=== PATIENT | female | born 1980 ===

== ENCOUNTER 2020-08-02 16:37 | Emergency (ER) | payer BC, SELFPAY ==
[2020-08-02] VITALS (7 sets, daily range): BP systolic 137–168; BP diastolic 74–101; PULSE 73–111; RESP 16–22; TEMP 36.7–37; O2SAT 98–100
--- NOTE | 2020-08-02 18:33 | ED_ITS ---
HPI - General Adult General Chief complaint: Dizziness Stated complaint: Ear and Sinus Stuff Tired, Vertigo, Nauseous Time Seen by Provider: 08/02/20 18:00 Source: patient Mode of arrival: Ambulatory Limitations: no limitations History of Present Illness HPI narrative: Patient is a 40-year-old female here for evaluation of multiple symptoms to include dizziness, lightheadedness, vertigo, feeling tired all the time. She has had anemia in the past secondary to vaginal bleeding from menses and has had a blood transfusion. Her symptoms that she presents with today been going on for the past 6 weeks. She has seen her primary doctor. Was placed on decongestants in oral steroids symptoms were not improving. She has contacted [facility] but does not have a follow-up scheduled to this point. Came to the emergency department because her symptoms were not improving. Related Data Previous Rx's Medication Instructions Recorded meclizine 25 mg PO TID PRN #21 tab 08/02/20 Allergies Allergy/AdvReac Type Severity Reaction Status Date / Time No Known Drug Allergies Allergy Verified 08/02/20 16:47 Review of Systems Constitutional Constitutional: Reports daytime sleepiness, Reports fatigue, Denies fever(s), Reports headache(s) and Reports lethargy Eyes Eyes: Denies change in vision ENT Ears, Nose, Mouth, and Throat: Reports vertigo, Reports dizziness, Denies otalgia, Reports headache(s), Reports disequilibrium, Denies sinus pain and Denies sinus pressure Cardiovascular Cardiovascular: Denies chest pain and Denies dyspnea Respiratory Respiratory: Denies cough and Denies dyspnea Gastrointestinal Gastrointestinal: Denies abdominal pain, Denies nausea and Denies vomiting Musculoskeletal Musculoskeletal: Denies arthralgias, Denies myalgias and Denies numbness Integumentary/Breasts Skin/Breast: Denies lesions and Denies rash Neurologic Neurologic: Denies burning sensations, Denies confusion, Reports vertigo, Reports dizziness, Reports headache(s), Denies numbness and Reports disequilibrium Psychiatric Psychiatric: Denies confusion Endocrine Endocrine: Reports fatigue Hematologic/Lymphatic Hematologic/Lymphatic: Denies easy bleeding and Denies easy bruising Allergic/Immunologic Allergic/Immunologic: Denies urticaria Patient History Medical History Anemia Social History Smoking Status: Never smoker Smoking Status: Never smoker Exam Initial Vital Signs Initial Vital Signs: Vital Signs Temperature 98.6 F 08/02/20 16:45 Pulse Rate 111 H 08/02/20 16:45 Respiratory Rate 22 08/02/20 16:45 Blood Pressure 168/101 H 08/02/20 16:45 Pulse Oximetry 100 08/02/20 16:45 Const General: cooperative and comfortable Limitations: mental status not altered HENMT Head: normal to inspection and normocephalic Ears: TM's normal bilaterally Eyes Pupils: PERRL Resp Effort & Inspection: normal respiratory effort Auscultation: clear to auscultation bilaterally Cardio Rate: regular rate Rhythm: regular rhythm GI Inspection: non-distended Palpation: soft Skin Lesions: no lesions Rashes: no rashes Neuro General: patient alert, patient awake and patient oriented x3 Cranial Nerves: CN's II-XI intact bilaterally Cognition: normal cognition Speech: speech normal Gait: normal gait Motor: muscle tone normal throughout Sensory Exam: no sensory deficits noted Extrem General: capillary refill normal Psych Appearance: grossly normal and well kempt Scores GCS [place] coma scale eye opening: Spontaneous Santi coma scale verbal response: Orientated Santi coma scale motor response: Obey commands Santi coma scale total score: 15 Course Orders Ordered: ED Orders 08/02/20 18:40 EKG-12 Lead Stat 08/02/20 18:52 Basic Metabolic Panel Stat Complete Blood Count AUTO DIFF Stat Test Serum,Qual Stat Thyroid Stimulating Hormone Stat Discontinued Medications Sodium Chloride (Normal Saline 0.9%) 1,000 mls @ 1,000 mls/hr IV BOLUS ONE Stop: 08/02/20 19:32 Last Infusion: 08/02/20 20:07 Dose: 0 mls/hr Documented by: Admin: 08/02/20 18:53 Dose: 1,000 mls/hr Documented by: PREETHI Vital Signs Vital signs: Vital Signs - 8 hr 08/02/20 18:01 08/02/20 18:02 08/02/20 18:30 Temperature Pulse Rate 88 95 H Respiratory Rate Blood Pressure 156/87 H 153/80 H Pulse Oximetry 100 100 08/02/20 19:00 08/02/20 19:17 08/02/20 20:11 Temperature 98.1 F Pulse Rate 73 88 82 Respiratory Rate 16 Blood Pressure 148/74 H 137/76 140/74 Pulse Oximetry 98 100 100 Medical Decision Making Lab Data Lab results reviewed: Yes I reviewed the patient's lab results. Result diagrams: 08/02/20 18:52 08/02/20 18:52 Labs: Lab Results 08/02/20 08/02/20 08/02/20 Range/Units 18:52 18:52 18:52 WBC 8.9 (4.5-11.0) X10^3/uL RBC 4.75 (4.0-5.2) X10^6/uL Hgb 11.9 L (12.0-16.0) g/dL Hct 35.6 L (36-46) % MCV 75.1 L (80-100) fL MCH 25.2 L (26-34) PG MCHC 33.5 (30-36) % RDW 16.2 H (11.6-14.8) % Plt Count 308 (150-400) X10^3/uL Neut % (Auto) 76.3 H (50-75) % Lymph % (Auto) 18.6 L (25-40) % [place] % (Auto) 4.3 (3-14) % Eos % (Auto) 0.4 L (2-4) % Baso % (Auto) 0.4 (0-2) % Neut # (Auto) 6800 (0337-0679) /uL Lymph # (Auto) 1700 (3952-1593) /uL [place] # (Auto) 400 (0-900) /uL Eos # (Auto) 0 (0-450) /uL Baso # (Auto) 0 (0-100) /uL Sodium 136 L (137-145) mmol/L Potassium 3.8 (3.4-5.1) mmol/L Chloride 106 (98-107) mmol/L Carbon Dioxide 26 (22-32) mmol/L BUN 9 (7-17) mg/dL Creatinine 0.43 L (0.52-1.04) mg/dL Estimated GFR > 60.0 (>60) mL/min BUN/Creatinine Ratio 20.9 (6-22) Glucose 100 (70-100) mg/dL Calcium 9.0 (8.4-10.2) mg/dL TSH 1.77 (0.47-4.68) uIU/mL Serum , Qual (Negative) 08/02/20 Range/Units 18:52 WBC (4.5-11.0) X10^3/uL RBC (4.0-5.2) X10^6/uL Hgb (12.0-16.0) g/dL Hct (36-46) % MCV (80-100) fL MCH (26-34) PG MCHC (30-36) % RDW (11.6-14.8) % Plt Count (150-400) X10^3/uL Neut % (Auto) (50-75) % Lymph % (Auto) (25-40) % [place] % (Auto) (3-14) % Eos % (Auto) (2-4) % Baso % (Auto) (0-2) % Neut # (Auto) (9834-2351) /uL Lymph # (Auto) (4839-0885) /uL [place] # (Auto) (0-900) /uL Eos # (Auto) (0-450) /uL Baso # (Auto) (0-100) /uL Sodium (137-145) mmol/L Potassium (3.4-5.1) mmol/L Chloride (98-107) mmol/L Carbon Dioxide (22-32) mmol/L BUN (7-17) mg/dL Creatinine (0.52-1.04) mg/dL Estimated GFR (>60) mL/min BUN/Creatinine Ratio (6-22) Glucose (70-100) mg/dL Calcium (8.4-10.2) mg/dL TSH (0.47-4.68) uIU/mL Serum , Qual Negative (Negative) ECG Data Attestation: I personally reviewed and interpreted this ECG as follows: Prior ECG tracings: not available for review Interpretation: Sinus rhythm Ventricular rate is 73 Normal axis Normal QRS Normal QTC No ST T wave changes MDM Narrative Medical decision making narrative: Patient has a relatively benign exam here in the emergency department. She is on decongestants and nasal steroids for what they initially thought was a sinus issue. Her symptoms been going on for the past 6 weeks. She is not anemic. EKG is unremarkable. Rest of her labs unremarkable. Patient does have some symptoms that are consistent with vertigo another symptoms that are not. She is not on any anti vertigo medication. Plan will be is to prescribe her meclizine and have her follow-up with ear nose and throat for which she has already contacted. Low suspicion for CVA. Patient was given return precautions and follow-up instructions. She expressed understanding and agreement. Discharge Plan Departure Patient Disposition: Home Clinical Impression: Dizzinesses Instructions: DI for Dizziness-Nonvertigo Activity Restrictions/Additional Instructions: A prescription was transmitted to [facility] in [place]. Start taking it as directed. Recommend that you keep all of your scheduled medical appointments. I would continue to work on trying to get a follow-up with the Ear nose and throat providers. Return to the emergency department for any new symptoms. Prescriptions: New meclizine 25 mg tablet 25 mg PO TID PRN (Reason: dizziness) Qty: 21 RF: 0 Referrals: Rosibel De Santiago ARNP [Primary Care Provider] -
--- NOTE | 2020-08-02 18:33 | ED.GENADULT ---
HPI - General Adult General Chief complaint: Dizziness Stated complaint: Ear and Sinus Stuff Tired, Vertigo, Nauseous Time Seen by Provider: 08/02/20 18:00 Source: patient Mode of arrival: Ambulatory Related Data Allergies Allergy/AdvReac Type Severity Reaction Status Date / Time No Known Drug Allergies Allergy Verified 08/02/20 16:47 Patient History Social History Smoking Status: Never smoker Smoking Status: Never smoker Exam Initial Vital Signs Initial Vital Signs: Vital Signs Temperature 98.6 F 08/02/20 16:45 Pulse Rate 111 H 08/02/20 16:45 Respiratory Rate 22 08/02/20 16:45 Blood Pressure 168/101 H 08/02/20 16:45 Pulse Oximetry 100 08/02/20 16:45 Course Vital Signs Vital signs: Vital Signs - 8 hr 08/02/20 16:45 08/02/20 18:01 08/02/20 18:02 Temperature 98.6 F Pulse Rate 111 H 88 Respiratory Rate 22 Blood Pressure 168/101 H 156/87 H Pulse Oximetry 100 100
[2020-08-02] MEDS: SODIUM CHLORIDE 0.9% 1,000 ML 1000 ML IV (18:53)
[2020-08-02 19:05] LABS: Add Manual Diff / Slide Review NO; Basophils Absolute Auto 0 /uL (0-100); Basophils Percent Auto 0.4 % (0-2); Eosinophils Absolute Auto 0 /uL (0-450); Eosinophils Percent Auto 0.4 % (2-4); Hematocrit 35.6 % (36-46); Hemoglobin 11.9 g/dL (12.0-16.0); Lymphocytes Absolute Auto 1700 /uL (1100-4500); Lymphocytes Percent Auto 18.6 % (25-40); Mean Corpuscular HGB Conc 33.5 % (30-36); Mean Corpuscular Hemoglobin 25.2 PG (26-34); Mean Corpuscular Volume 75.1 fL (80-100); Monocytes Absolute Auto 400 /uL (0-900); Monocytes Percent Auto 4.3 % (3-14); Neutrophils Absolute Auto 6800 /uL (1500-7000); Neutrophils Percent Auto 76.3 % (50-75); Platelet Count 308 X10^3/uL (150-400); Red Blood Cell Count 4.75 X10^6/uL (4.0-5.2); Red Cell Distribution Width 16.2 % (11.6-14.8); White Blood Cell Count 8.9 X10^3/uL (4.5-11.0)
[2020-08-02 19:18] LABS: Pregnancy Test Serum,Qual Negative (Negative)
[2020-08-02 19:19] LABS: BUN Creatinine Ratio 20.9 (6-22); Blood Urea Nitrogen 9 mg/dL (7-17); Carbon Dioxide 26 mmol/L (22-32); Chloride 106 mmol/L (98-107); Estimated Glomerular Filt Rate > 60.0 mL/min (>60); Glucose 100 mg/dL (70-100); HEMOLYSIS < 15 (0-50); Potassium 3.8 mmol/L (3.4-5.1); Sodium 136 mmol/L (137-145)
[2020-08-02 19:49] LABS: Thyroid Stimulating Hormone 1.77 uIU/mL (0.47-4.68)
== END 2020-08-02 20:11 | disposition home or self-care (01) ==
PROVIDERS: Emergency Provider Emergency Medicine; PCP Nurse Practitioner
DX: R42 Dizziness and giddiness (principal); D64.9 Anemia, unspecified; R53.83 Other fatigue; R51.9 Headache, unspecified
CPT/HCPCS: 36415; 80048; 84443; 84703; 85025; 93005; 93010; 96360; 99283; 99284

== ENCOUNTER 2020-09-10 15:21 | Emergency (ER) | payer BC, SELFPAY ==
[2020-09-10 15:28] VITALS: BP 181/91; PULSE 97; RESP 16; TEMP 36.8; O2SAT 97; BMI 32.2
--- NOTE | 2020-09-10 15:32 | DI.RAD.S_ITS ---
PROCEDURE: XR HIP W PEL IF DONE RT 2V INDICATIONS: fall TECHNIQUE: AP pelvis with frogleg lateral view of the right hip. COMPARISON: None. FINDINGS: Bones: No acute fractures or dislocations. Pelvic ring appears intact. No suspicious bony lesions. There is possible ankylosis of the left sacroiliac joint that may be related to prior sacroiliitis. Minimal spurring is seen at the lateral margins of the acetabula. Soft tissues: The visualized bowel gas pattern is normal. No suspicious soft tissue calcifications. IMPRESSION: No acute osseous abnormality. 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 If there is continued pain, further evaluation with CT or MRI may be obtained. Dictated by: Jason Rgean M.D. on 09/10/2020 at 16:07 Approved by: Jason Regan M.D. on 09/10/2020 at 16:11
--- NOTE | 2020-09-10 16:48 | ED_ITS ---
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 She has had steroid injections in the past. Does not have a orthopedic provider here in the area. She states that earlier this week she was hiking with her and afterwards started having pain in her right hip. The next day she went on a again in the pain got worse. She states that since that time she has had difficulty especially with movement of her hip. She states she can stand on her hip without much discomfort. Has been taking Tylenol and ibuprofen for her symptoms. Related Data Previous Rx's Medication Instructions Recorded meclizine 25 mg PO TID PRN #21 tab 08/02/20 hydrocodone-acetaminophen [[place]] 1 tab PO Q4-6H PRN #10 tab 09/10/20 Allergies Allergy/AdvReac Type Severity Reaction Status Date / Time No Known Drug Allergies Allergy Verified 08/02/20 16:47 Review of Systems Constitutional Constitutional: Denies fever(s) and Denies headache(s) ENT Ears, Nose, Mouth, and Throat: Denies vertigo, Denies dizziness and Denies headache(s) Cardiovascular Cardiovascular: Denies chest pain and Denies dyspnea Respiratory Respiratory: Denies dyspnea Gastrointestinal Gastrointestinal: Denies nausea Musculoskeletal Musculoskeletal: Denies myalgias Comments: Right hip pain Integumentary/Breasts Skin/Breast: Denies rash Neurologic Neurologic: Denies vertigo, Denies dizziness and Denies headache(s) Patient History Medical History Anemia Social History Smoking Status: Never smoker Smoking Status: Never smoker Substance Use Type: does not use Exam Initial Vital Signs Initial Vital Signs: Vital Signs Temperature 98.3 F 09/10/20 15:28 Pulse Rate 97 H 09/10/20 15:28 Respiratory Rate 16 09/10/20 15:28 Blood Pressure 181/91 H 09/10/20 15:28 Pulse Oximetry 97 09/10/20 15:28 Const General: cooperative, healthy appearing and comfortable Resp Effort & Inspection: normal respiratory effort Cardio Rate: regular rate Skin Lesions: no lesions Rashes: no rashes Extrem Other: Right knee and right ankle unremarkable. Patient does have right hip tenderness both laterally and anteriorly. She has tenderness with external rotation but not with internal rotation. She can somewhat flex and extend with minimal tenderness. Psych Appearance: grossly normal and well kempt Course Orders Ordered: ED Orders 09/10/20 15:32 XR hip w pel if done RT 2V Stat Vital Signs Vital signs: Vital Signs - 8 hr 09/10/20 15:28 09/10/20 17:05 Temperature 98.3 F Pulse Rate 97 H 89 Respiratory Rate 16 16 Blood Pressure 181/91 H 188/96 H Pulse Oximetry 97 98 MDM - Fall Imaging Data Extremity x-ray #1: Radiologist's Impression: [address] [id number] ReportSigned Patient: Malena Bill AMR#: [id number]: 1980Acct:[id number]/Sex: 40 / FDate of Service: 09/10/20Loc: EDAccession Number: [id number] Procedure: XR hip w pel if done RT 2V Ordering Provider: Nik Nye D.O. PROCEDURE: XR HIP W PEL IF DONE RT 2V INDICATIONS: fall TECHNIQUE: AP pelvis with frogleg lateral view of the right hip. COMPARISON: None. FINDINGS: Bones: No acute fractures or dislocations. Pelvic ring appears intact. No suspicious bony lesions. There is possible ankylosis of the left sacroiliac joint that may be related to prior sacroiliitis. Minimal spurring is seen at the lateral margins of the acetabula. Soft tissues: The visualized bowel gas pattern is normal. No suspicious soft tissue calcifications. IMPRESSION: No acute osseous abnormality. 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 If there is continued pain, further evaluation with CT or MRI may be obtained. Dictated by: Jason Regan M.D. on 09/10/2020 at 16:07 Approved by: Jason Regan M.D. on 09/10/2020 at 16:11 [facility] Narrative Medical decision making narrative: Patient is neurovascularly intact. No f ractures noted on the x-rays. Unfortunately patient wanted a steroid injection in her hip but I told her that we were unable to do that here in the ER. We did discuss the use of Tylenol and ibuprofen. She does have crutches at home crew will send home with a short course of pain medication. She was given referral to contact the health resources coordinator to help her status or primary doctor in the area. She expressed understanding and agreement Discharge Plan Departure Patient Disposition: Home Clinical Impression: Acute pain of right hip Instructions: DI for Hip Pain Activity Restrictions/Additional Instructions: There were no fractures on the x-ray so you can walk on your right leg as tolerated. Recommend that you contact [phone]. This is a health senior water resources engineer who can help establish a primary provider. Recommend that you take the Tylenol and ibuprofen like we discussed for discomfort. Return to the emergency department for any new symptoms Prescriptions: New hydrocodone-acetaminophen [[place]] 5-325 mg tablet 1 tab PO Q4-6H PRN (Reason: pain) Qty: 10 RF: 0 No Action meclizine 25 mg tablet 25 mg PO TID PRN (Reason: dizziness) Qty: 21 RF: 0 Referrals: Rosibel De Santiago ARNP [Primary Care Provider] -
[2020-09-10 17:05] VITALS: BP 188/96; PULSE 89; RESP 16; O2SAT 98
== END 2020-09-10 17:07 | disposition home or self-care (01) ==
PROVIDERS: Emergency Provider Emergency Medicine; PCP Nurse Practitioner
DX: M25.551 Pain in right hip (principal); D64.9 Anemia, unspecified; W19.XXXA Unspecified fall, initial encounter
CPT/HCPCS: 73502; 99283

== ENCOUNTER → 2020-09-17 16:38 | Outpatient (CLI) | payer BC, SELFPAY ==
--- NOTE | 2020-09-17 16:40 | DI.MRI.S_ITS ---
PROCEDURE: MR HIP RT WO CON INDICATIONS: PAIN IN RIGHT HIP TECHNIQUE: Noncontrast coronal T1 spin echo and STIR through the bony pelvis. Coronal and axial T2 fast spin echo with fat saturation, sagittal T1 spin echo, and oblique axial T2 fast spin echo with fat saturation through the hip. COMPARISON: [facility] Outside Film, MR, MR HIP RIGHT WITHOUT CONTRAST, 05/27/2019, 18:39. [facility], CR, XR HIP W PEL IF DONE RT 2V, 09/10/2020, 15:38. FINDINGS: Image quality: Excellent. Bones and joints: Bone marrow of the pelvic ring and proximal femurs demonstrates normal overall signal. No bone contusions or fractures. There is mild collar osteophytosis in the hips. No avascular necrosis of the femoral heads. The visualized lower lumbar spine appears normally aligned. Tendons and ligaments: The gluteus medius and minimus tendons appear intact, with mild peritendinous edema consistent with nonspecific peritendinitis. No discrete bursal fluid collections. The nearby proximal iliotibial band also appears intact. The iliopsoas tendon appears intact, without adjacent bursal fluid collections or evidence for impingement syndrome. The origin of the hamstring tendon is intact at the ischial tuberosity, as well as the associated sacrotuberous ligament. The straight and reflected heads of the rectus femoris muscle origin appear intact, as well as the conjoint tendon. The ligamentum teres appears intact where visualized. Labrum and cartilage: There is mild partial tearing in the anterosuperior labrum. Cartilage surface of the femoral head demonstrates mild thinning superiorly. The alpha angle of the femur is within normal limits at less than 55 degrees. Soft tissues: Visualized muscles demonstrate normal bulk and internal signal. Quadratus femoris muscle demonstrates no internal edema to suggest ischiofemoral impingement. The proximal sciatic neurovascular bundle appears normal adjacent to the hamstring tendons. No free pelvic fluid. Bladder wall thickness is normal. Multiple uterine fibroids redemonstrated including a left paracentral the exophytic fibroid measuring up to 4.0 x 4.0 cm in coronal dimension. Visualized bowel loops appear normal in caliber. IMPRESSION: 1. Mild partial tearing of the anterosuperior labrum. 2. Mild degenerative changes of the right hip with mild superior cartilage thinning and mild collar osteophytosis. 3. Mild peritendinitis along the gluteal tendons at the right greater trochanter without a discrete bursal fluid collection. 4. Enlarged fibroid uterus demonstrated. Dictated by: Young Cross M.D. on 09/20/2020 at 16:44 Approved by: Young Cross M.D. on 09/20/2020 at 16:58
== END ==
PROVIDERS: PCP Nurse Practitioner; Referring Provider Physical Medicine & Rehabilitation Pain Medicine; Visit Provider Physical Medicine & Rehabilitation Pain Medicine
DX: M25.551 Pain in right hip (principal); S73.191A Other sprain of right hip, initial encounter; M76.01 Gluteal tendinitis, right hip; D25.9 Leiomyoma of uterus, unspecified
CPT/HCPCS: 73721

== ENCOUNTER 2021-04-06 06:22 | Emergency (ER) | payer BC, SELFPAY ==
--- NOTE | 2021-04-06 06:36 | ED_ITS ---
HPI - General Adult <Becca Jacinto MD - Last Filed: 04/06/21 22:18> General Chief complaint: Urogenital-Female Stated complaint: uterine fibroids impacting bladder Time Seen by Provider: 04/06/21 06:36 Related Data Previous Rx's Medication Instructions Recorded meclizine 25 mg tablet 25 mg PO TID PRN #21 tab 08/02/20 hydrocodone 5 mg-acetaminophen 325 1 tab PO Q4-6H PRN #10 tab 09/10/20 mg tablet ([place]) hydrocodone 5 mg-acetaminophen 325 1 tab PO Q8H PRN #6 tab 04/06/21 mg tablet Allergies Allergy/AdvReac Type Severity Reaction Status Date / Time No Known Drug Allergies Allergy Verified 08/02/20 16:47 <Nik Nye DO - Last Filed: 04/06/21 07:35> History of Present Illness HPI narrative: Patient is a 41-year-old female. She states she has known uterine fibroids that were diagnosed at outside facility by an ultrasound. She states that whenever she gets her menstrual cycle she has very intense pain and then has problems with urinating. She is 2 days into her menstrual cycle and is again having discomfort. 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 She is not on control. She states she has tried multiple forms of control in the past and just seems to make things worse. <Nik Nye DO - Last Filed: 04/06/21 07:35> Constitutional Constitutional: Reports system reviewed and no additional complaints, except as documented Gastrointestinal Gastrointestinal: Reports as per HPI Genitourinary Genitourinary: Reports system reviewed and no additional complaints, except as documented Musculoskeletal Musculoskeletal: Reports system reviewed and no additional complaints, except as documented Hematologic/Lymphatic On Anticoagulants: No Patient History <Becca Jacinto MD - Last Filed: 04/06/21 22:18> Medical History Anemia Social History Smoking Status: Never smoker Smoking Status: Never smoker Substance Use Type: does not use Exam <Becca Jacinto MD - Last Filed: 04/06/21 22:18> Initial Vital Signs Initial Vital Signs: Vital Signs Temperature 98.1 F 04/06/21 06:41 Pulse Rate 85 04/06/21 06:41 Respiratory Rate 18 04/06/21 06:41 Blood Pressure 162/94 H 04/06/21 06:41 Pulse Oximetry 100 04/06/21 06:41 <Nik Nye DO - Last Filed: 04/06/21 07:35> Initial Vital Signs Initial Vital Signs: Vital Signs Temperature 98.1 F 04/06/21 06:41 Pulse Rate 85 04/06/21 06:41 Respiratory Rate 18 04/06/21 06:41 Blood Pressure 162/94 H 04/06/21 06:41 Pulse Oximetry 100 04/06/21 06:41 Const General: cooperative and healthy appearing HENMT Head: normal to inspection Resp Effort & Inspection: normal respiratory effort Auscultation: clear to auscultation bilaterally Cardio Rate: regular rate Rhythm: regular rhythm GI Inspection: normal to inspection and non-distended Skin General: no rashes or lesions noted Neuro General: patient alert, patient awake and moves all extremities Extrem General: normal to inspection Course <Becca Jacinto MD - Last Filed: 04/06/21 22:18> Orders Ordered: ED Orders 04/06/21 06:55 Ictotest Urine Stat Test Urine Stat Urine Culture Stat Urine Microscopic Stat Vital Signs Vital signs: Vital Signs - 8 hr 04/06/21 06:41 Temperature 98.1 F Pulse Rate 85 Respiratory Rate 18 Blood Pressure 162/94 H Pulse Oximetry 100 <Nik Nye DO - Last Filed: 04/06/21 07:35> Orders Ordered: ED Orders 04/06/21 06:55 Ictotest Urine Stat Test Urine Stat Urine Culture Stat Urine Microscopic Stat Vital Signs Vital signs: Vital Signs - 8 hr 04/06/21 06:41 Temperature 98.1 F Pulse Rate 85 Respiratory Rate 18 Blood Pressure 162/94 H Pulse Oximetry 100 Medical Decision Making <Becca Jacinto MD - Last Filed: 04/06/21 22:18> Lab Data Labs: Lab Results 04/06/21 04/06/21 04/06/21 Range/Units 06:55 06:55 06:55 Ur Bilirubin Confirm Negative (Negative) Urine RBC 0-1/hpf (0-5/HPF) Urine WBC 1-5/hpf (0-5/HPF) Ur Squamous Epith Cells 1-5 /hpf (0-5/HPF) Urine Bacteria Moderate (10-30) H (None) Urine Mucus 2+ H (Negative) Ur Culture Indicated? Culture not indicate Urine Test Negative (Negative) Urine Dip Bedside Urine Glucose Negative Bedside Urine Bilirubin + 1 Bedside Urine Ketone - Negative Urine Specific [place] 1.030 Bedside Urine Occult Blood +/- Bedside Urine pH 6.0 Bedside Urine Protein +/- 15 Bedside Urine Urobilinogen - Negative Bedside Urine Nitrite - Negative Bedside Urine Leukocytes - Negative Esterase Point of care testing: Urine Dip Bedside Urine Glucose Negative Bedside Urine Bilirubin + 1 Bedside Urine Ketone - Negative Urine Specific [place] 1.030 Bedside Urine Occult Blood +/- Bedside Urine pH 6.0 Bedside Urine Protein +/- 15 Bedside Urine Urobilinogen - Negative Bedside Urine Nitrite - Negative Bedside Urine Leukocytes - Negative Esterase <Nik Nye DO - Last Filed: 04/06/21 07:35> Lab Data Lab results reviewed: Yes I reviewed the patient's lab results. Labs: Lab Results 04/06/21 04/06/21 04/06/21 Range/Units 06:55 06:55 06:55 Ur Bilirubin Confirm Negative (Negative) Urine RBC 0-1/hpf (0-5/HPF) Urine WBC 1-5/hpf (0-5/HPF) Ur Squamous Epith Cells 1-5 /hpf (0-5/HPF) Urine Bacteria Moderate (10-30) H (None) Urine Mucus 2+ H (Negative) Ur Culture Indicated? Culture not indicate Urine Test Negative (Negative) Urine Dip Bedside Urine Glucose Negative Bedside Urine Bilirubin + 1 Bedside Urine Ketone - Negative Urine Specific [place] 1.030 Bedside Urine Occult Blood +/- Bedside Urine pH 6.0 Bedside Urine Protein +/- 15 Bedside Urine Urobilinogen - Negative Bedside Urine Nitrite - Negative Bedside Urine Leukocytes - Negative Esterase Point of care testing: Urine Dip Bedside Urine Glucose Negative Bedside Urine Bilirubin + 1 Bedside Urine Ketone - Negative Urine Specific [place] 1.030 Bedside Urine Occult Blood +/- Bedside Urine pH 6.0 Bedside Urine Protein +/- 15 Bedside Urine Urobilinogen - Negative Bedside Urine Nitrite - Negative Bedside Urine Leukocytes - Negative Esterase MDM Narrative Medical decision making narrative: Urinalysis unremarkable, test is negative, vital signs unremarkable, feel that we can hold on any radiologic studies for now. Bladder scan shows a postvoid residual of 50 cc. She is not retaining urine. Had a discussion with her regarding her symptoms. She does not want start on any control was it seems of make things worse. Unfortunately there is not much more we can do for her out of the emergency department other than try to provide some symptom control. I did inform her that she can try to contact her insurance company to see if they have any providers on their list outside of the local area in order for her to get in to see a drama professor provider. Patient was initially signed up for by Dr. Jacinto however Dr. Jacinto had no clinical interaction with the patient. Discharge Plan Departure Patient Disposition: Home Clinical Impression: Fibroid Instructions: DI for Uterine Fibroids Activity Restrictions/Additional Instructions: I recommend that you contact your insurance provider in order to get a list of providers in your network that may be outside of the local area. You can contact these providers to schedule a follow-up appointment. Continue to take Tylenol/ibuprofen for ear discomfort. You can take the stronger pain medicine as needed. Further prescriptions as this will need to come from either your primary doctor or a drama professor provider. Prescriptions: New hydrocodone-acetaminophen 5-325 mg tablet 1 tab PO Q8H PRN (Reason: pain) Qty: 6 RF: 0 No Action meclizine 25 mg tablet 25 mg PO TID PRN (Reason: dizziness) Qty: 21 RF: 0 hydrocodone-acetaminophen [[place]] 5-325 mg tablet 1 tab PO Q4-6H PRN (Reason: pain) Qty: 10 RF: 0 Referrals: Yanelis Acosta PA-C [Primary Care Provider] - ED Sign-out <Becca Jacinto MD - Last Filed: 04/06/21 22:18> [facility]: I was immediately available in the depa rtment for consultation throughout this patient's visit. I agree with documentation as above. Becca Jacinto MD
[2021-04-06 06:41] VITALS: BP 162/94; PULSE 85; RESP 18; TEMP 36.7; O2SAT 100; BMI 35.0
[2021-04-06 07:18] LABS: Ictotest Urine Negative (Negative); Pregnancy Test Urine Negative (Negative)
[2021-04-06 07:26] LABS: Bacteria Urine Moderate (10-30); Mucus Urine 2+ (Negative); RBC Urine 0-1/HPF (0-5/HPF); Squamous Epithelial Cell Urine 1-5 /HPF (0-5/HPF); WBC Urine 1-5/HPF (0-5/HPF)
[2021-04-06 07:51] VITALS: BP 149/73; PULSE 67; RESP 18; O2SAT 98
== END 2021-04-06 07:51 | disposition home or self-care (01) ==
PROVIDERS: Emergency Medicine; Emergency Provider Emergency Medicine; PCP Physician Assistant
DX: D25.9 Leiomyoma of uterus, unspecified (principal)
CPT/HCPCS: 51798; 81003; 81015; 81025; 87077; 87086; 87147; 99282